=== PATIENT | male | born 1990 | race Two or more races ===

== ENCOUNTER 2021-01-24 01:37 | Emergency (ER) | payer OTHER ==
[~2021-01-24] VITALS: Ht 188 cm; Wt 90.7 kg
[2021-01-24] MEDS ORDERED: KETO10TA2 PO (04:30)
[2021-01-24] MEDS ORDERED: CEPHALEXIN500 M1 PO (04:30)
== END 2021-01-24 04:38 | disposition home or self-care (01) ==
LOC: ER 01:37
DX: S61.422A Laceration with foreign body of left hand, initial encounter (principal); W45.8XXA Other foreign body or object entering through skin, initial encounter; Y93.89 Activity, other specified; Y92.89 Other specified places as the place of occurrence of the external cause; Y99.8 Other external cause status